=== PATIENT | male | born 1980 | race Caucasian/White ===

== ENCOUNTER → 2024-03-12 | Outpatient (CLI) | payer SELFPAY, OTHER ==
--- NOTE | 2024-03-12 06:40 | ECHOD_ITS ---
Reason For Study: Chest Pain Procedure This was a 2D Doppler, Color Flow transthoracic echocardiogram. Exam performed in department. Left Ventricle Normal size and thickness. The left ventricular ejection fraction is 60 %. No evidence for diastolic dysfunction. Right Ventricle Normal right ventricle. Atria The left and right atria are normal. Mitral Valve Trivial mitral valve insufficiency. Tricuspid Valve Mild tricuspid valve insufficiency. Normal pulmonary artery pressure. Aortic Valve Trisinus/trileaflet aortic valve. Pulmonic Valve Mild (1+) pulmonic valve insufficiency. Great Vessels Normal sized aortic root. Pericardium/Pleural No pericardial effusion. MMode/2D Measurements & Calculations LVIDd: 4.6 cm IVSd: 1.1 cm LVOT diam: 2.1 cm LVIDs: 3.3 cm LVPWd: 1.1 cm LVOT area: 3.4 cm2 RVDd: 2.9 cm FS: 28.1 % asc Aorta Diam: 3.3 cm LAV(MOD-bp): 35.2 ml LVAd ap4: 22.8 cm2 LAV(MOD-bp) Indexed: 19.1 ml/m2 LVLd ap4: 7.7 cm LAV(MOD-sp2): 43.5 ml EDV(MOD-sp4): 56.0 ml LAV(MOD-sp4): 28.2 ml EDV(sp4-el): 57.4 ml LVAs ap4: 12.7 cm2 LVLs ap4: 6.2 cm ESV(MOD-sp4): 22.2 ml ESV(sp4-el): 22.1 ml EF(MOD-sp4): 60.5 % EF(sp4-el): 61.4 % SV(MOD-sp4): 33.9 ml SV(sp4-el): 35.2 ml LA A4 area: 13.0 cm2 SI(MOD-sp4): 18.4 ml/m2 LA dimension(2D): 3.2 cm RA A4 area: 11.2 cm2 TAPSE: 1.9 cm Time Measurements MV dec time: 0.19 sec Doppler Measurements & Calculations MV E max adalberto: 66.4 cm/sec Lat Peak E' Adalberto: 14.2 cm/sec Med Peak E' Adalberto: 8.2 cm/sec MV A max adalberto: 43.0 cm/sec E/E' lat: 4.7 E/E' med: 8.1 MV E/A: 1.5 Ao V2 max: 104.3 cm/sec LV V1 max: 98.9 cm/sec MV dec slope: 341.2 cm/sec2 Ao max P.4 mmHg LV V1 max P.9 mmHg Ao V2 mean: 72.4 cm/sec LV V1 mean P.1 mmHg Ao mean P.4 mmHg LV V1 mean: 67.2 cm/sec Ao V2 VTI: 21.8 cm LV V1 VTI: 21.3 cm AV (velocity ratio): 0.98 SUE(I,D): 3.3 cm2 SUE(V,D): 3.2 cm2 SV(LVOT): 72.7 ml PA V2 max: 99.1 cm/sec PI end-d adalberto: 81.7 cm/sec PA max PG (full): 1.3 mmHg TR max adalberto: 227.2 cm/sec TR max P.7 mmHg ECHO/Echo Complete Interpretation Summary The left ventricular ejection fraction is 60 %. No evidence for diastolic dysfunction. Mild tricuspid valve insufficiency. Mild (1+) pulmonic valve insufficiency. Ordering Physician: Kristan Booth Referring Physician: Kristan Booth Performed By: Sandy Oliva RVT, RDCS and Student
--- NOTE | 2024-03-12 10:36 | STRESSREP ---
Stress Test Report Date: 03/12/2024 Procedure: Exercise tolerance test/imaging study Indications: Chest pain Consent: Per the patient Procedure: The patient exercised on a Ashvin protocol for 10 minutes achieving a peak heart rate of 1 6 bpm (89% predicted maximal heart rate) with a peak blood pressure 132/88 mmHg and a peak MET capacity of 13.4 METs. The baseline ECG demonstrated sinus rhythm. The peak exercise ECG demonstrated sinus tachycardia with no ischemic changes. There were no cardiac dysrhythmias pretest, during exercise, or recovery. The functional capacity was considered very good. There was no complaint of chest discomfort during exercise or recovery. The examination was discontinued secondary to target heart rate being achieved. The patient was injected with 9.5 mCi of technetium 99m Cardiolite and subsequently rest SPECT Cardiolite nuclear imaging was obtained in the horizontal long, vertical long, and short axis views. Post-exercise, the patient was injected with 32.1 mCi of technetium 99m Cardiolite and subsequently stress SPECT Cardiolite nuclear imaging was obtained in the horizontal long, vertical long, and short axis views. A gated Cardiolite study at peak stress was obtained. Rest and stress SPECT Cardiolite nuclear imaging status post realignment, normalization, and attenuation correction, demonstrates a mild reversible perfusion defect of the apex and distal inferior wall. There is end systolic thickening and brightening. The gated Cardiolite study demonstrates myocardial thickening and inward wall motion. The reported LVEF is 63%. Impression: 1. Technically adequate (percent predicted maximal heart rate greater than 85%) exercise tolerance test 2. Peak exercise ECG with no ischemic changes. No angina reported. 3. There were no cardiac dysrhythmias pretest, during exercise, or recovery 4. Rest and stress SPECT Cardiolite nuclear imaging demonstrate mild reversible perfusion defect of the apex and distal inferior wall suggestive of small area of ischemia. 5. The gated Cardiolite study reports an LVEF of 63%. This note was generated with iPerceptionsation software. It may contain incorrect words, spelling, and punctuation that were not noted in checking the note before signing.
== END | disposition home or self-care (01) ==
PROVIDERS: PCP Nurse Practitioner Family; Referring Provider Nurse Practitioner Family; Visit Provider Nurse Practitioner Family
DX: R07.9 Chest pain, unspecified (principal)
CPT/HCPCS: 78452; 93017; 93306; A9500; A4216

== ENCOUNTER → 2024-05-16 | Outpatient (CLI) | payer SELFPAY, OTHER ==
--- NOTE | 2024-05-16 13:06 | CT_ITS ---
STUDY: CT CHEST WITH CONTRAST REASON FOR EXAM: Male, 44 years old. Chest pain borderline abnormal stress test RADIATION DOSAGE (If Supplied By Facility): CTDIvol = ( 31.41 ) mGy, DLP = ( 1141.46 ) mGycm TECHNIQUE: Transaxial imaging was performed following intravenous administration of IV 100mL Isovue-370. Cardiac over read examination. Individualized dose optimization techniques were used for this CT. COMPARISON: No relevant priors. FINDINGS: CHEST The lungs are normal. There is no demonstrated pleural abnormality. Normal heart and pericardium. Normal mediastinum. Normal hilar regions. Normal unenhanced pulmonary arteries. Normal aorta arch and descending thoracic aorta. Normal osseous structures. Fatty infiltration of the liver CT/Limited Chest CT Cardiac Only IMPRESSION: Fatty infiltration of the liver. Electronically Signed: Bryan Keyes MD at 9:42 EST ,
[2024-05-16 13:22] VITALS: BP 115/77; PULSE 74; RESP 16; O2SAT 98; BMI 26.6
[2024-05-16 13:42] VITALS: PULSE 67
[2024-05-16] MEDS: Nitroglycerin SL (ED/IMG/CATH) 0.4 MG TABLET SL (13:42)
[2024-05-16 13:52] VITALS: BP 119/66; PULSE 75; RESP 14; O2SAT 98
--- NOTE | 2024-05-16 16:55 | CCTA.WCONT ---
CCTA w/Cont Coronary Arteries Date of Study:: 05/16/24 Chest pain/ abnormal stress test Coronary Calcium Scoring: High-resolution Computed Tomographic imaging of the chest was performed on [05/16/24 ], with particular attention paid to the coronary arteries. Intravenous contrast agent was administered per protocol and images reconstructed and displayed. LEFT MAIN CORONARY ARTERY: Arises from the left main coronary cusp. No significant stenosis is noted. [] LEFT ANTERIOR DESCENDING CORONARY ARTERY: Arises from the left main coronary artery with an ostial high-grade stenosis comprised mainly of soft plaque. The vessel then continues in the mid segment with no high-grade stenosis and then bifurcates towards the apex of the ventricle [] LEFT CIRCUMFLEX CORONARY ARTERY: Nondominant medium size vessel with a first prominent obtuse marginal branch with no significant stenosis and a second medium size obtuse marginal branch after an AV groove branch. No high-grade stenosis noted in this vessel [] RIGHT CORONARY ARTERY: Arises from the right coronary cusp and continuous in the midsegment and terminates at the posterior descending artery and posterolateral vessel. No high-grade stenosis present. [] THORACIC AORTA: Normal size [] PULMONARY ARTERY: Normal size [] LEFT ATRIUM/APPENDAGE: [] MITRAL VALVE: Normal [] AORTIC VALVE: Trileaflet [] LEFT VENTRICLE: [] CORONARY CALCIUM SCORE: Not performed Conclusion: CT angiogram demonstrating likely high-grade ostial LAD stenosis present. No significant calcification present. []
== END | disposition home or self-care (01) ==
LOC: CT 13:06
PROVIDERS: PCP Nurse Practitioner Family; Referring Provider Internal Medicine Cardiovascular Disease; Visit Provider Internal Medicine Cardiovascular Disease
DX: R07.9 Chest pain, unspecified (principal)
CPT/HCPCS: 75574; 76380; Q9967

== ENCOUNTER → 2024-05-20 | Outpatient (CLI) | payer SELFPAY, OTHER ==
--- NOTE | 2024-05-20 13:25 | RAD_ITS ---
EXAM: XR CHEST, 2 VIEWS CLINICAL INDICATION: Pre-operative TECHNIQUE: Frontal and lateral views of the chest. COMPARISON: No relevant prior studies available. FINDINGS: LUNGS AND PLEURAL SPACES: Unremarkable. No consolidation or edema. No pneumothorax. No effusion. HEART: Unremarkable. Cardiac silhouette not enlarged. MEDIASTINUM: Central airways and mediastinal contour are unremarkable. BONES/JOINTS: Unremarkable. No acute fracture. SOFT TISSUES: Unremarkable. RAD/Chest PA and Lateral IMPRESSION: No radiographic evidence of acute cardiopulmonary disease. Electronically Signed: Victorino Chaudhary MD at 18:59 EST ,
== END | disposition home or self-care (01) ==
LOC: RAD 07-25 13:52
PROVIDERS: PCP Nurse Practitioner Family; Referring Provider Nurse Practitioner Family; Visit Provider Nurse Practitioner Family
DX: R07.2 Precordial pain (principal)
CPT/HCPCS: 71046

== ENCOUNTER 2024-05-23 06:35 | Day surgery (SDC) | payer SELFPAY, OTHER ==
[2024-05-20 13:32] LABS: Absolute Lymphocyte Count 1.41 X10^3/uL (0.83-4.51); Absolute Neutrophil Count 3.4 X10^3/uL (2.0-7.7); Basophil# 0.03 X10^3/uL; Basophil% 0.5 % (0-1); Eosinophil# 0.18 X10^3/uL; Eosinophils% 3.2 % (0-5); Hematocrit 39.5 % (40-54); Hemoglobin 12.7 g/dL (13.0-16.5); Lymphocyte # 1.41 X10^3/ul (0.83-4.51); Lymphocyte % 25.4 % (19-41); Mean Corp Hgb Conc 32.2 g/dL (32-36); Mean Corpuscular Hgb 25.5 pg (27.0-32.0); Mean Corpuscular Volume 79.3 fL (80-94); Mean Platelet Vol. 9.7 fl (6.2-12.0); Monocyte# 0.57 X10^3/uL; Monocyte% 10.3 % (0-10); NRBC Flagged by Analyzer 0 % (0-5); Neutrophil # 3.36 X10^3/uL (2.7-7.7); Neutrophil % 60.4 % (47-70); Platelet Count 254 K/mm3 (150-450); RBC Distribution Width CV 14.9 % (11.6-14.6); RBC Distribution Width SD 42.5 fl (35.1-43.9); Red Blood Count 4.98 M/mm3 (4.6-6.2); White Blood Count 5.6 K/mm3 (4.4-11.0)
[2024-05-20 13:54] LABS: Anion Gap 4 (5-15); BUN 18 mg/dL (7-18); Calcium,Total 8.5 mg/dL (8.5-10.1); Chloride 107 mmol/L (98-107); Creatinine, Serum 1.06 mg/dL (0.70-1.30); EST Glomerular Filtration Rate 81 mL/min (>60); Est Glom Filt Rate - Afr Amer 98 mL/min (>60); Glucose 106 mg/dL (74-106); Potassium 3.9 mmol/L (3.5-5.1); Sodium Level 140 mmol/L (136-145)
[2024-05-21 15:23] VITALS: BMI 26.9
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
--- NOTE | 2024-05-23 08:24 | CL.D_ITS ---
Patient Name: EMIL ROY Study Date: 05/23/2024 Performing: Jan Trevino MD Ht: 66 inches 167.64 cm : 1980 Wt: 167 lbs 75.75 kg Age: 44 Gender: male BSA: 1.85 PROCEDURE(S) PERFORMED [id number])LHC/COR/LV CLINICAL PROFILE AND INDICATIONS Indications: Worsening Angina Heart Failure: None Stress/Imaging Cardiac CTA: Yes Result: 1VDCardiac CTA: 1VD CAD Presentations: Stable angina. CONCLUSIONS Normal coronary arteries Normal LV size, wall motion,and systolic function RECOMMENDATIONS Medical therapy DESCRIPTION OF PROCEDURE The patient arrived to the procedure lab. The risks and benefits of the procedure as well as a full description of our services here and current unavailability of surgical backup were fully explained to the patient and/or their significant other prior to the catheterization. The Timeout was completed, verifying the correct patient and procedure. The patient's procedural site was prepped and draped in the usual fashion. Local anesthetic was given subcutaneously to right radial region with Lidocaine 2%. Using a modified Seldinger technique, arterial access was obtained via the right radial artery, a 6Fr sheath was inserted. Left Coronary Artery selective angiography was performed in multiple views using a 5 Fr. 4.0 [place] catheter. Right Coronary Artery selective angiography was then performed in multiple views using a 5 Fr. 4.0 [place] catheter. Left Ventriculography was performed in SMITH projection using a 5 Fr. Pigtail catheter.The arterial sheath was pulled and a TR Band was applied for hemostasis w/ 9ml air CORONARY ANGIOGRAPHY DOMINANCE: Right Dominant LEFT HEART ASSESSMENT Left Ventricular Ejection Fraction: by LV Gram 65 % Normal LV wall motion Normal Left Ventricular systolic function Normal Left Ventricular systolic function LEFT MAIN: Angiographically normal LEFT ANTERIOR DESCENDING ARTERY: Angiographically normal CIRCUMFLEX ARTERY: Angiographically normal RIGHT CORONARY ARTERY: Angiographically normal COMPLICATIONS No Complications PROCEDURE MEDICATIONS Versed 1 mg IV Fentanyl 50 mcg IV Versed 1 mg IV Oxygen: 2 L/min via nasal cannula Heparin given IA 05/23/2024 08:08:15 Verapamil 2.5mg, Ntg 100mcgs, 3000 units of Heparin given IA 05/23/2024 08:08:15 SUMMARY OF HEMODYNAMIC DATA Time AIR REST ECG 07:11:51 AO 138/22 (36) SA 08:09:43 LV 101/4, 11 08:13:47 LV 107/6, 11 08:13:56 LV 110/7, 10 08:14:48 LV 101/6, 13 08:14:57 LVp 102/5, 13 08:15:01 AOp 0/-26 (0) 08:15:08 Signed By Jan Trevino MD On 05/23/2024 08:24:06 Jan Trevino MD
== END 2024-05-23 10:10 | disposition home or self-care (01) ==
PROVIDERS: Nurse Practitioner Family; PCP Nurse Practitioner Family; Referring Provider Internal Medicine Cardiovascular Disease; Visit Provider Internal Medicine Cardiovascular Disease
DX: I20.89 Other forms of angina pectoris (principal); R94.39 Abnormal result of other cardiovascular function study; Z87.891 Personal history of nicotine dependence; Z82.49 Family history of ischemic heart disease and other diseases of the circulatory system
CPT/HCPCS: 36415; 80048; 85025; 93458; 99152; 99153; Q9967; C1769; C1894